=== PATIENT | female | born 1985 | race Caucasian/White ===

== ENCOUNTER 2019-08-13 13:01 | Inpatient (IN) | payer MEDICAID ==
[~2019-08-13] VITALS: Ht 152.4 cm; Wt 79.0 kg
[~2019-08-13 13:01] MED LIST: PREN1TAB49 PO
[2019-08-13 13:21] VITALS: Ht 152.4 cm; Wt 79.0 kg
[2019-08-13 13:22] VITALS: BP 139/84; PULSE 73; RESP 19
[2019-08-13] MEDS ORDERED: OXYTOCIN 30 UNITS/LR 500 ML IV PRN (14:30)
[2019-08-13] MEDS ORDERED: MINERAL OIL LIGHT 10 ML VIAL TOP PRN (14:30)
[2019-08-13] MEDS ORDERED: CARBOPROST 250 MCG INJ IM PRN (14:30)
[2019-08-13] MEDS ORDERED: MISOPROSTOL 200 MCG TAB PR PRN (14:30)
[2019-08-13] MEDS ORDERED: LIDOCAINE 1% (MPF) 30 ML INJ INJ PRN (14:30)
[2019-08-13] MEDS ORDERED: METHYLERGONOVINE 0.2 MG INJ IM PRN (14:30)
[2019-08-13] MEDS ORDERED: OXYTOCIN 30 UNITS/LR 500 ML IV SCH ×3 (14:30)
[2019-08-13] MEDS ORDERED: BUTORPHANOL 2 MG INJ IV PRN (14:30)
[2019-08-13] MEDS ORDERED: IBUPROFEN 600 MG TAB PO PRN (14:30)
[2019-08-13] MEDS: LACTATED RINGER'S 1,000 ML IV SCH (16:51)
[2019-08-13] MEDS ORDERED: LACTATED RINGER'S 1,000 ML IV ONE (17:00)
[2019-08-13] MEDS ORDERED: FENTAnyl 2MCG/ML-ROPIV 0.2% 100 ML ONE (17:39)
[2019-08-13] MEDS ORDERED: FENTAnyl 2MCG/ML-ROPIV 0.2% 100 ML BAG EPI SCH (19:00)
[2019-08-13] MEDS ORDERED: NALOXONE (0.4 MG/ML) INJ IV PRN (19:00)
[2019-08-13] MEDS ORDERED: ONDANSETRON 4 MG INJ IV PRN (19:00)
[2019-08-13] MEDS ORDERED: DIPHENHYDRAMINE 50 MG INJ IV PRN (19:00)
[2019-08-13] MEDS ORDERED: TRIMETHOBENZAMIDE 100 MG/ML VIAL IM PRN (19:00)
[2019-08-14] MEDS: LACTATED RINGER'S 1,000 ML IV SCH (01:52)
[2019-08-14] MEDS ORDERED: AMPICILLIN 2 GM/NS (PMX) 100 ML IV ONE (04:00)
[2019-08-14] MEDS ORDERED: AMPICILLIN 1 GM/NS (PMX) 50 ML IV SCH (08:00)
[2019-08-14 12:00] VITALS: BP 135/73; PULSE 80; RESP 18
[2019-08-14] MEDS ORDERED: OXYTOCIN 30 UNITS/LR 500 ML IV SCH (12:17)
[2019-08-14] MEDS ORDERED: LACTATED RINGER'S 1,000 ML IV* SCH (12:17)
[2019-08-14] MEDS ORDERED: ZOLPIDEM 5 MG TAB PO PRN (12:30)
[2019-08-14] MEDS ORDERED: MAGNESIUM HYDROXIDE 30ML CUP PO PRN (12:30)
[2019-08-14] MEDS ORDERED: OXYTOCIN 30 UNITS/LR 500 ML IV PRN (12:30)
[2019-08-14] MEDS ORDERED: HYDROCODONE/APAP (5/325) TAB PO PRN (12:30)
[2019-08-14] MEDS ORDERED: DIPHENHYDRAMINE 25 MG CAP PO PRN (12:30)
[2019-08-14] MEDS ORDERED: BENZOCAINE 20% 56 ML SPRAY TOP PRN (12:30)
[2019-08-14] MEDS ORDERED: WITCH HAZEL/GLYCERIN PAD PR PRN (12:30)
[2019-08-14] MEDS ORDERED: CARBOPROST 250 MCG INJ IM PRN (12:30)
[2019-08-14] MEDS ORDERED: LANOLIN HPA 1 PKT TOP PRN (12:30)
[2019-08-14] MEDS ORDERED: METHYLERGONOVINE 0.2 MG INJ IM PRN (12:30)
[2019-08-14] MEDS ORDERED: MISOPROSTOL 200 MCG TAB PR PRN (12:30)
[2019-08-14] MEDS ORDERED: SENNA/DOCUSATE NA (8.6MG/50MG) TAB PO PRN (12:30)
[2019-08-14] MEDS ORDERED: ACETAMINOPHEN 325 MG TAB PO PRN (12:30)
[2019-08-14 13:00] VITALS: BP 108/61; PULSE 86; RESP 18
[2019-08-14] MEDS: IBUPROFEN 800 MG TAB PO SCH (13:21)
[2019-08-14 16:00] VITALS: BP 103/60; PULSE 86; RESP 17
[2019-08-14 21:00] VITALS: BP 104/81; PULSE 75; RESP 18
[2019-08-15] VITALS: BP 110/78; PULSE 78; RESP 18
[2019-08-15] MEDS: IBUPROFEN 800 MG TAB PO SCH ×6 (00:51→23:55)
[2019-08-15 04:00] VITALS: BP 115/74; PULSE 72; RESP 18
[2019-08-15 08:15] VITALS: BP 116/71; PULSE 76; RESP 18
[2019-08-15 16:05] VITALS: BP 135/73; RESP 18
[2019-08-15 19:30] VITALS: BP 121/75; PULSE 70; RESP 18
[2019-08-16 04:30] VITALS: BP 118/67; PULSE 64
[2019-08-16] MEDS: IBUPROFEN 800 MG TAB PO SCH ×3 (06:06→18:00)
[2019-08-16 08:00] VITALS: BP 126/82; PULSE 69; RESP 16
[2019-08-16] MEDS ORDERED: VARICELLA VACCINE LIVE/PF 1,350 UNIT/0.5 ML ML SC* ONE (09:00)
[2019-08-16] MEDS ORDERED: DIPHTH/TET/ACEL PERTUSS (ADULT) 0.5 ML VIAL IM* ONE (09:00)
[2019-08-16] MEDS ORDERED: MEASLES,MUMPS,RUBELLA VACCINE INJ SC* ONE (09:00)
[2019-08-16 16:00] VITALS: BP 131/79; PULSE 79; RESP 18
== END 2019-08-16 18:37 | disposition home or self-care (01) | DRG 807 ==
LOC: L-D 13:01 → OBT 13:01 → L-D 14:39 → PP1 08-14 12:01
PROVIDERS: ADMIT Obstetrics & Gynecology; ATTEND Obstetrics & Gynecology
PROC: 10E0XZZ Delivery of Products of Conception, External Approach (ICD-10-PCS; principal; 2019-08-14)
DX: O80 Encounter for full-term uncomplicated delivery (principal); Z37.0 Single live birth; Z3A.39 39 weeks gestation of pregnancy
CPT/HCPCS: 62322; 76818; 85025; 85610; 85730; 86592; 86850; 86900; 86901; 87340; 90716; G0463; J0290; J2590; J3010; J7120